=== PATIENT | female | born 1980 | race Caucasian/White ===

== ENCOUNTER 2017-07-04 11:17 | Day surgery (SDC) | payer OTHER ==
[2017-07-01 14:53] VITALS: BMI 33.3
[2017-07-04] MEDS ORDERED: PROPOFOL 20 ML ONE ×5 (12:01)
[2017-07-04 12:33] VITALS: TEMP 98.2
[2017-07-04 13:23] VITALS: BP 120/78; PULSE 73
--- NOTE | 2017-07-05 11:43 | PATH ---
Surgical Pathology Report Patient Name: LAUREN LAMA [facility]. Rec. #: [id number] /Age/Gender: 1980 (Age: 37) / F Account: [id number] Location: U-ENDOSCOPY Taken: 07/04/2017 Received: 07/04/2017 Reported: 07/05/2017 Physicians: Lew Triana D.O. Specimen(s) Received A: BX ANGULARIS / BODY B: BX DISTAL ESOPHAGUS Clinical History Preoperative diagnosis: Abdominal pain Postoperative diagnosis: Esophagitis, hiatal hernia Final Diagnosis A. STOMACH, ANGULARIS AND BODY, BIOPSY: GASTRIC FUNDIC MUCOSA WITH FOCAL MILD CHRONIC GASTRITIS. IMMUNOSTAIN FOR H. PYLORI IS NEGATIVE. B. DISTAL ESOPHAGUS, BIOPSY: GASTRIC TYPE MUCOSA WITH CHRONIC INFLAMMATION. NO INTESTINAL METAPLASIA IDENTIFIED (NO CASTELAN'S IDENTIFIED). Electronically Signed Dawson Mclaughlin M.D. Gross Description A. Received in formalin, labeled "biopsy angularis/body" are 5 strong, irregular portions of soft tissue ranging from 0.2-0.5 cm. in greatest dimension. The specimens are submitted in toto in one cassette. B. Received in formalin, labeled "biopsy distal esophagus" is a strong, irregular portion of soft tissue measuring 0.4 cm. in greatest dimension. The specimen is submitted in toto in one cassette. /07/04/2017 saudi07/04/2017
== END 2017-07-04 13:15 | disposition home or self-care (01) ==
LOC: JASU-ENDO 11:17
PROVIDERS: ATTEND Internal Medicine Gastroenterology
PROC: 0DB68ZX Excision of Stomach, Via Natural or Artificial Opening Endoscopic, Diagnostic (ICD-10-PCS; 2017-07-04)
PROC: 0DB38ZX Excision of Lower Esophagus, Via Natural or Artificial Opening Endoscopic, Diagnostic (ICD-10-PCS; principal; 2017-07-04 12:15)
DX: K21.0 Gastro-esophageal reflux disease with esophagitis (principal); K44.9 Diaphragmatic hernia without obstruction or gangrene
CPT/HCPCS: 84703; 88305-TC; 88342-TC